=== PATIENT | male | born 1985 | race Two or more races ===

== ENCOUNTER 2018-05-09 17:58 | Emergency (ER) | payer OTHER, SELFPAY ==
[~2018-05-09] VITALS: Ht 175.3 cm; Wt 63.0 kg
[2018-05-09] MEDS ORDERED: IBUPROFEN 200 MG TABLET ONE (18:27)
[2018-05-09] MEDS ORDERED: IBUPROFEN 200 MG TABLET PO ONE (18:30)
[2018-05-09 18:52] LABS: BASOPHILS # (AUTO) 0.01 x10^3/uL (0-0.1); BASOPHILS % (AUTO) 0 % (0-1); EOSINOPHILS # (AUTO) 0.08 x10^3/uL (0-0.4); EOSINOPHILS % (AUTO) 2 % (1-7); LYMPHOCYTES # (AUTO) 0.85 x10^3/uL (1-3.4); LYMPHOCYTES % (AUTO) 24 % (22-44); MD NO; MEAN CORPUSCULAR HEMOGLOBIN 30.5 pg (27.5-34.5); MEAN CORPUSCULAR HGB CONC 34.1 g/dL (33.2-36.2); MEAN CORPUSCULAR VOLUME 89.4 fL (81-97); MEAN PLATELET VOLUME 7.4 fL (7.4-10.4); MONOCYTES # (AUTO) 0.39 x10^3/uL (0.2-0.8); MONOCYTES % (AUTO) 11 % (2-9); NEUTROPHILS # (AUTO) 2.17 x10^3/uL (1.8-6.8); NEUTROPHILS % (AUTO) 62 % (42-75); PLATELET COUNT 285 x10^3/uL (130-400); RED BLOOD COUNT 4.22 x10^6/uL (4.38-5.82); RED CELL DISTRIBUTION WIDTH 14.8 % (9.4-14.8)
[2018-05-09 19:01] LABS: ALBUMIN 3.1 g/dL (3.4-5.0); ANION GAP 5 mmol/L (5-15); CALCIUM 8.6 mg/dL (8.5-10.1); CHLORIDE 105 mmol/L (98-107); CREATININE 0.77 mg/dL (0.7-1.3)
[2018-05-09 19:03] VITALS: BP 100/71
== END 2018-05-09 19:39 | disposition home or self-care (01) ==
LOC: ED 19:10
DX: G43.C1 Periodic headache syndromes in child or adult, intractable (principal); H54.62 Unqualified visual loss, left eye, normal vision right eye
CPT/HCPCS: 36415; 70450; 80048; 82040; 85025; 99285